=== PATIENT | male | born 1965 | race Caucasian/White ===

== ENCOUNTER 2024-11-30 12:49 | Outpatient (AMB) | payer OTHER, SELFPAY ==
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
[2024-11-30 12:54] VITALS: BP 136/75; PULSE 72; RESP 16; O2SAT 96; BMI 27.5
--- OUTSIDE RECORDS SUMMARY | 2024-11-30 15:00 | XMS_ITS | Continuity of Care Document ---
Author Organization [facility] Address [address] [place] [id number]- Care Team Providers Care Fixed Income Portfolio Manager Name Role Phone Not on Staff, PCP Primary Care Physician Unavail able Encounter [facility] Date(s): 10/26/24 - 11/25/24 [facility] [address] [place] [id number] Encounter Type: Triage Allergies, Adverse Reactions, Alerts No Known Allergies Immunizations Given and Recorded Vaccine Date Status Refusal Reason hepatitis B adult vaccine 10/04/23 Given hepatitis B adult vaccine 1 09/05/23 Given influenza virus vaccine, inactivated 09/12/23 Tavon rded influenza virus vaccine, inactivated 08/14/22 Give n influenza virus vaccine, inactivated 09/16/21 Tavon rded influenza virus vaccine, inactivated 09/06/20 Tavon rded influenza virus vaccine, inactivated 10/15/18 Tavon rded SARS-CoV-2(COVID-19)mRNA-LNP vac([id number]) 09/12/23 Recorded Hepatitis A Adult Vaccine 2 09/05/23 Given [id number] bivalent booster vax 10/26/22 Recorded SARS-CoV-2 mRNA (ixwllcq-laif-ifmrl) vax 03/22/22 Recorded SARS-CoV-2 (COVID-19) mRNA BNT-162b2 vac 09/16/21 Recorded SARS-CoV-2 (COVID-19) mRNA BNT-162b2 vac 02/14/21 Recorded SARS-CoV-2 (COVID-19) mRNA BNT-162b2 vac 01/24/21 Recorded pneumococcal 13-valent vaccine 10/15/18 Recorded 1Result Comment: Heplisav-B #1 2Result Comment: #1 Medications Biktarvy oral tablet 1 tablet, By Mouth, Daily, # 30 tablet, 5 Refills, Maintenance, 10/26/24 12:40:00 PM EST, [facility] #[id number], 1 tablet By Mouth Daily,x30 days, 183, cm, 06/30/24 10:34:00 EDT, Height Start Date: 10/26/24 Stop Date: 04/24/25 Status: Ordered Quantity: 30.0 Unit: tablet Repeat number: 6 pantoprazole 40 mg oral delayed release tablet 1 tablet = 40 mg, By Mouth, Daily, # 30 tablet, 0 Refills, Maintenance, 08/14/22 9:23:00 AM EDT, EC Tablet Start Date: 08/14/22 Status: Ordered Quantity: 30.0 Unit: tablet Repeat number: 1 rosuvastatin 10 mg oral tablet 1 tablet, By Mouth, Daily, # 90 tablet, 1 Refills, Maintenance, 09/02/24 8:44:00 AM EDT, [facility] #[id number], 183, cm, 06/30/24 10:34:00 EDT, Height Start Date: 09/02/24 Stop Date: 03/01/25 Status: Ordered Quantity: 90.0 Unit: tablet Repeat number: 2 Social History Social History Type Response Smoking Status Never (less than 100 in lifetime) entered on: 08/14/22 Sex Sex Representation Male (finding) Patient Care team information Care Team Personnel Name: Not on Staff, PCP Position: S Physician (General Medicine) Member Role: PCP Care Team Related Persons Name: IRVIN KUMARI Name: MARIZOL MESSER Insurance Providers Guarantor name: CARLY Health Plan Information #: 1 Payer: [facility] Member Number: NA Policy Number: NA Group Number: NA
--- OUTSIDE RECORDS SUMMARY | 2024-11-30 15:01 | XMS_ITS | Data Portability ---
Author Organization [facility], , [facility] Address [address] [place] [address] Assessment No assessment recorded. Plan of Treatment Reminders Order Date Submit Date Provider Last Modified By Organization Details Last Modified Time Details Appointments None record ed. Lab None record ed. Referral None record ed. Procedures None record ed. Surgeries None record ed. Imaging None record ed. Medication Orders None record ed. Patient TargetsNo targets recorded. Patient InstructionsNo instructions recorded. Reason for Referral None Reported. Results Created Date Observation Date Name Description Value Unit Range Abnormal Flag Note LastModifiedBy Organization Detail LastModifiedTime Result Notes None recorded. Procedures Surgical History Date Name Laterality Status Provider Name and Address Organization Details Recorded Time 6 Tala - Colonoscopy completed Mani Edgar MD [address] [place] [address], [id number] [facility] [place] 14:25:31 Imaging Results None recorded. Procedure Notes None recorded. Medical Equipment None Reported. Medications Name Sig Start Date Stop Date Status Note LastModified by Organization Details LastModified Time terazosin 5 mg capsule TAKE ONE CAPSULE BY MOUTH AT BEDTIME active Not Available Not Available No t Available oxybutynin chloride ER 10 mg tablet,extended release 24 hr TAKE 2 TABLET(S ) BY MOUTH DAILY active Not Available Not Available No t Available prochlorperazin e maleate 10 mg tablet active Not Available Not Available Not Available pantoprazole 40 mg tablet,delayed release active Not Available Not Available Not Available Atripla 600 mg-200 mg-300 mg tablet TAKE 1 TABLET BY MOUTH AT BEDTIME active Not Available Not Available No t Available Vitals None Recorded Social History None recorded. Functional Status None recorded. Mental Status None recorded. Family History Nothing Reported. Medical History No medical history recorded. Past Encounters Encounter ID Performer Location Encounter Start Date Encounter Closed Date Diagnosis/Indication Diagnosis SNOMED-CT Code Diagnosis ICD10 Code Diagnosis Note [id number] Olive Sam [facility] [place] [address] [place] [address] 11/28/2015 13:15:21 11/28/2015 14:41:45 Health Concerns Section Related Observation LastModified by Organization Doris daniel LastModified Time None Recorded Concern Status LastModified by Organization Details LastModified Time None Recorded Advance Directives Directive None Recorded Payers Encounter Date Sequence Insurance Name Policy Number Policy Gupta Covered Member ID Gupta Member ID Guarantor Name 11/28/2015 1 [facility] ([id number]) [id number] Sachin Mena [id number] Sachin Mena
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
== END 2024-11-30 13:37 | disposition home or self-care (01) ==
PROVIDERS: PCP Family Medicine; Referring Provider Physical Medicine & Rehabilitation; Visit Provider Internal Medicine
DX: M47.812 Spondylosis without myelopathy or radiculopathy, cervical region (principal); M79.18 Myalgia, other site
CPT/HCPCS: 20552; 99204

== ENCOUNTER → 2024-11-30 12:49 | Outpatient (BNVA) | payer OTHER, SELFPAY | PROVIDERS: PCP Family Medicine; Referring Provider Physical Medicine & Rehabilitation; Visit Provider Internal Medicine | DX: M79.18 Myalgia, other site (principal); M47.812 Spondylosis without myelopathy or radiculopathy, cervical region | CPT/HCPCS: 20552; J2795 ==

== ENCOUNTER 2024-12-23 10:09 | Outpatient (AMB) | payer OTHER, SELFPAY ==
--- NOTE | 2024-12-23 10:29 | MHC.OFFVIS ---
Vital Signs 12/23/24 10:30 Height 6 ft Weight 201 lb BMI 27.3 BP 142/82 H Blood Pressure Location Lt brachial Position Sitting Respiration 16 Pulse 71 Pulse Source Pulse Oximeter Pulse Oximetry (%) 97 Oxygen Delivery Method Room Air Intake Visit Reasons: 3 Week Follow Up Catalog Library Assistant Required: No Allergies amoxicillin Adverse Reaction (Severe, Verified 12/23/24 10:32) Hives Medication List - Last Reconciled 12/23/24 by Radha Cates LPN qozmkhuwd-huiiqjyt-xqdgaej ala 50-200-25 mg (Biktarvy) 1 tab PO DAILY rosuvastatin 10 mg PO BEDTIME HPI HPI 3 Week Follow Up: Details: History of Present Illness The patient is a 59-year-old male presenting with refractory cervicogenic headaches and cervical facet joint syndrome. The patient reports a history of persistent headaches and neck pain that have not responded to alternative treatments including physical therapy, chiropractic manipulation, extensive lumbar exercise programs, and cervical trigger point injections. Following the trigger point injections, the patient experienced exacerbated pain, describing a sensation of a lump in the neck and persistent headaches unchanged in frequency and severity. The primary problem started several years ago and has persisted despite intervention. Exacerbating factors include nighttime and certain neck movements, while there is no significant alleviation with current measures. Prior interventions have provided temporary or minimal relief, and the patient's condition remains unchanged, impacting daily activities and quality of life. Pain Description - Location: Neck and cervicogenic region, with associated headaches. - Timing: Chronic, persistent with episodic exacerbation. - Character: Persistent aching pain, feeling of a lump, headache development. - Exacerbating factors: Nighttime, after certain treatments. - Interfering activities: Daily living, sleep due to nighttime exacerbation. Physical Exam Appears afebrile. Alert and oriented. Mood and affect appropriate. Follows and participates in conversation appropriately. Respiratory effort is unlabored. Able to transition from sit to stand unassisted. Ambulates with bilaterally normal heel strike and toe off. Able to stand and walk on toes and heels. Cervical extension severely limited and painful. Pain Management - Affect: Pain is frustrating and impacting daily activities. - Analgesia: Trigger point injections were not effective. - Adverse Effects: No specific adverse effects noted beyond pain exacerbation post-injection. - Activities of Daily Living: Limited due to headaches and neck pain. - Aberrant Drug Related Behaviors: None reported. PFSH Medical History (Updated 12/30/24 @ 11:50 by Bj Abernathy MD) Hyperlipidemia Insomnia BPH (benign prostatic hyperplasia) GERD (gastroesophageal reflux disease) Inguinal hernia HIV (human immunodeficiency virus infection) Physical Exam Vital Signs: Last Vital Signs Pulse 71 12/23/24 10:30 Resp 16 12/23/24 10:30 BP 142/82 H 12/23/24 10:30 Pulse Ox 97 12/23/24 10:30 Oxygen Delivery Method Room Air 12/23/24 10:30 BMI result Body Mass Index 27.3 Assessment & Plan Assessment & Plan (1) Myofascial pain syndrome, cervical: Code(s): M79.18 - Myalgia, other site Category: Medical (2) Cervical facet joint syndrome: Code(s): M47.812 - Spondylosis without myelopathy or radiculopathy, cervical region Category: Medical (3) Chronic neck pain: Code(s): M54.2 - Cervicalgia; G89.29 - Other chronic pain Category: Medical Plan Plan - Proceed with temporary nerve stimulation targeting the C3 medial branch and third occipital nerve. - Submit insurance authorization for nerve stimulator procedure. - Consider diagnostic facet injections if required for insurance approval prior to nerve stimulator use. Patient was informed and verbally consented to the use of an ambient scribe for clinic note documentation during this visit. Discussion Notes During this visit, I discussed the patient's ongoing cervicogenic headaches and cervical facet joint syndrome. Although previous treatments such as trigger point injections did not yield relief, we explored the option of temporary nerve stimulation, targeting the third occipital nerve and C3-4 medial branch nerves. The patient was informed of the procedure details, including the 70% success rate and the non-invasive nature of the implant, as well as minor procedural risks such as a theoretical 1% lead breakage risk. The patient consented to proceed with this plan upon insurance approval. Alternate treatments, potential diagnostic injections, and their limited longer-term benefits were also reviewed. Patient Instructions - Await communication regarding insurance approval for the nerve stimulator procedure. - Avoid swimming or full body immersion in water for two months should the stimulator be placed. - Continue regular activities but be mindful of neck movements that trigger pain. - Report any significant changes in pain or new symptoms. Coding Level of Care Code Est Pt Level 3 (08158) Diagnoses Myofascial pain syndrome, cervical M79.18 Cervical facet joint syndrome M47.812 Chronic neck pain M54.2; G89.29
[2024-12-23 10:30] VITALS: BP 142/82; PULSE 71; RESP 16; O2SAT 97; BMI 27.3
--- OUTSIDE RECORDS SUMMARY | 2024-12-23 11:05 | XMS_ITS | Data Portability ---
Author Organization [facility] [employer], [employer] 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 Lab None recorded. Referral None recorded. Procedures None recorded. Surgeries None recorded. Imaging None recorded. Medication Orders propranolol ER 60 mg capsule,24 hr,extended release 2023 024 [id number], [address] [place], [place], [phone], 10:39:49 Patient TargetsNo targets recorded. Patient Instructions Encounter Date Encounter Id Patient Instructions Last Modified By Organization Details Last Modified Time 01/07/2024 [id number] Discussion acros s issues of diagnoses and management and same day associated chart review and management greater than 50% greater than 60 minutes [email or web address] Not available 01/07/2024 10:19:04 Reason for Referral None Reported. Results Created Date Observation Date Name Description Value Unit Range Abnormal Flag Note LastModifiedBy Organization Detail LastModifiedTime 01/07/2011/23/2023 MRI, brain , w/o contr ast No observ ation record ed. [email or web address] [address], [address], 01/07/2024 12:14:56 Result Notes None recorded. Procedures Surgical History None recorded. Imaging Results Imaging Date Name Status LastModified by Organiz ation Details LastModified Time 11/23/2023 MRI, brain, w/o contrast completed [email or web address] [address], [address], 01/07/2024 12:14:56 Procedure Notes None recorded. Medical [...] Updated DateTime 01/07/2024 182.88 cm 26.3 kg/m2 00515.92 g 12 /min [facility] 01/07/2024 09:30:44 Social History None [...] SNOMED-CT Code Diagnosis ICD10 Code Diagnosis Note [id number] Jorge Stockton MD [facility] [address] [place] [address] [place] [address] 01/07/2024 08:56:52 01/07/2024 10:55:41 Migraine without aura [id number] G43.009 Health Concerns Section Related Observation LastModified by Organization Detai ls LastModified Time None Recorded Concern Status LastModified by Organization Details LastModified Time None Recorded Advance Directives Directive None Recorded Payers Encounter Date Sequence Insurance Name Policy Number Policy Gupta Covered Member ID Gupta Member ID Guarantor Name 01/07/2024 1 [facility] [id number] Sachin Mena [id number] Sachin Mena Notes Date Note Type Note [...] the skull base and to his right synagogue with significant light and sound sensitivity and [...] before it becomes excruciating, and takes for itdq-tat-aqhmhhs Advil or the equivalent of naproxen, the headache is somewhat dulled. Nevertheless, the headache is debilitating throughout its course. He has never tried a prescription medication for headache.If he were not having headaches, he feels quite healthy. He has had no confusion or fever. He has no weakness. Jorge Stockton MD [address] [place] [address] [place], [address], Formerly [facility] 01/07/2024 10:42:34
--- OUTSIDE RECORDS SUMMARY | 2024-12-23 11:06 | XMS_ITS | Continuity of Care Document ---
Author Organization [facility] Address [address] [place] [address] Care Team Providers Care School Resource Officer Name Role Phone Not on Staff, PCP Primary Care Physician Unavail able Encounter [facility] Date(s): 10/26/24 - 11/25/24 [facility] [address] [place] [address] Encounter Type: Triage Allergies, Adverse Reactions, Alerts [...] virus vaccine, inactivated 10/15/18 Tavon rded SARS-CoV-2(COVID-19)mRNA-LNP vac(sss478) 09/12/23 Recorded Hepatitis A Adult Vaccine 2 09/05/23 Given [id number] bivalent booster vax 10/26/22 Recorded SARS-CoV-2 mRNA (uyowmiw-jncn-goose) vax 03/22/22 Recorded SARS-CoV-2 (COVID-19) mRNA BNT-162b2 vac 09/16/21 Recorded SARS-CoV-2 (COVID-19) mRNA BNT-162b2 vac 02/14/21 Recorded SARS-CoV-2 (COVID-19) mRNA BNT-162b2 vac 01/24/21 Recorded pneumococcal 13-valent vaccine 10/15/18 Recorded 1Result Comment: Heplisav-B #1 2Result Comment: #1 Medications Biktarvy oral tablet 1 tablet, By Mouth, Daily, # 30 tablet, 5 Refills, Maintenance, 10/26/24 12:40:00 PM EST, [facility] #[id number], 1 tablet By Mouth Daily,x30 days, 183, [...] 1 Refills, Maintenance, 09/02/24 8:44:00 AM EDT, [facility] #[id number], 183, cm, 06/30/24 10:34:00 EDT, Height Start [...] CARLY Health Plan Information #: 1 Payer: [facility] Member Number: NA Policy Number: NA Group Number: [id number]
== END 2024-12-23 11:12 | disposition home or self-care (01) ==
PROVIDERS: PCP Family Medicine; Visit Provider Internal Medicine
DX: M79.18 Myalgia, other site (principal); M47.812 Spondylosis without myelopathy or radiculopathy, cervical region; M54.2 Cervicalgia; G89.29 Other chronic pain
CPT/HCPCS: 99213

== ENCOUNTER → 2024-12-23 10:09 | Outpatient (BNVA) | payer OTHER, SELFPAY | PROVIDERS: PCP Family Medicine; Visit Provider Internal Medicine ==

== ENCOUNTER 2025-02-18 08:01 | Outpatient (REF) | payer OTHER, SELFPAY ==
--- NOTE | ~2025-02-18 | FL_ITS ---
EXAMINATION: FL GUIDANCE ONLY HISTORY: M47.812 - Spondylosis without myelopathy or radiculopathy, cervical region COMPARISON: None available. TECHNIQUE: Fluoroscopy time: 0.2 minutes. Cumulative Dose: 1.56 mGy. DAP: 0.08908 mGym2 Images: 2. FINDINGS: Images demonstrate multiple needles and contrast material in the right neck. FL/FL guidance in treatment room IMPRESSION: Fluoroscopy during procedure. Please see procedure report for additional information. Electronically signed by: Chas Siegel MD 02/19/2025 08:12 AM EDT
--- OUTSIDE RECORDS SUMMARY | 2025-02-18 08:05 | XMS_ITS | Data Portability ---
Author Organization [facility], , [facility] Address [address] [place] [address] Assessment No assessment recorded. Plan of Treatment [...] Tala - Colonoscopy completed Mani Edgar MD [address] [place] [address], [phone], [facility] 11/28/2015 14:25:31 Imaging Results None recorded. Procedure [...] SNOMED-CT Code Diagnosis ICD10 Code Diagnosis Note [id number] Olive Sam [facility] [address] [place] [address] 11/28/2015 13:15:21 11/28/2015 14:41:45 Health Concerns Section Related Observation LastModified by Organization Doris daniel LastModified Time None Recorded Concern Status LastModified by Organization Details LastModified Time None Recorded Advance Directives Directive None Recorded Payers Encounter Date Sequence Insurance Name Policy Number Policy Gupta Covered Member ID Gupta Member ID Guarantor Name 11/28/[address] [facility] (O) [id number] Sachin Mena [id number] Sachin Mena
--- OUTSIDE RECORDS SUMMARY | 2025-02-18 08:05 | XMS_ITS | Data Portability ---
Author Organization [facility] [employer], [employer] Address [address] [place] [address] [place] [address] Care Team Providers Care Assembly Machine Set Up Mechanic Name Role Phone [place] BAUER Primary Care Provider [phone] [place] BAUER Referring Provider Assessment Encounter Date [...] to find brain MRI he had at [facility] for documentation Follow-up in 6 weeks nicholas Not available 01/07/2024 10:42:22 Plan of Treatment Reminders Order Date Submit Date Provider Last Modified By Organization Details Last Modified Time Details Appointments None recorded. Lab None recorded. Referral None recorded. Procedures None recorded. Surgeries None recorded. Imaging None recorded. Medication Orders propranolol ER 60 mg capsule,24 hr,extended release 2023 024 [facility] #[id number], [address] [place], [place], [phone], 10:39:49 Patient TargetsNo targets recorded. Patient Instructions Encounter Date Encounter Id Patient Instructions Last Modified By Organization Details Last Modified Time 01/07/2024 [id number] Discussion acros s issues of diagnoses and management and same day associated chart review and management greater than 50% greater than 60 minutes [email or web address] Not available 01/07/2024 10:19:04 Reason for Referral None Reported. Results Created Date Observation Date Name Description Value Unit Range Abnormal Flag Note LastModifiedBy Organization Detail LastModifiedTime 01/07/2011/23/2023 MRI, brain , w/o contr ast No observ ation record ed. [email or web address] [address], [address], 01/07/2024 12:14:56 Result Notes None recorded. Procedures Surgical History None recorded. Imaging Results Imaging Date Name Status LastModified by Organiz ation Details LastModified Time 11/23/2023 MRI, brain, w/o contrast completed [email or web address] [address], [address], 01/07/2024 12:14:56 Procedure Notes None recorded. Medical [...] Updated DateTime 01/07/2024 182.88 cm 26.3 kg/m2 03026.92 g 12 /min [facility] 01/07/2024 09:30:44 Social History None recorded. Functional [...] SNOMED-CT Code Diagnosis ICD10 Code Diagnosis Note 53389 Jorge Stockton MD [facility] [address] [place] [address] [place] [address] 01/07/2024 08:56:52 01/07/2024 10:55:41 Migraine without aura [id number] G43.009 Health Concerns Section Related Observation LastModified by Organization Detai ls LastModified Time None Recorded Concern Status LastModified by Organization Details LastModified Time None Recorded Advance Directives Directive None Recorded Payers Encounter Date Sequence Insurance Name Policy Number Policy Gupta Covered Member ID Gupta Member ID Guarantor Name 01/07/2024 1 [facility] [id number] Sachin Mena [id number] Sachin Mena Notes Date Note Type Note [...] the skull base and to his right uatsdin with significant light and sound sensitivity and [...] before it becomes excruciating, and takes for lvzi-flj-sjmgana Advil or the equivalent of naproxen, the headache is somewhat dulled. Nevertheless, the headache is debilitating throughout its course. He has never tried a prescription medication for headache.If he were not having headaches, he feels quite healthy. He has had no confusion or fever. He has no weakness. Jorge Stockton MD [address] [place] [address] [place], [address], formerly [facility] 01/07/2024 10:42:34
== END 2025-02-18 08:02 | disposition home or self-care (01) ==
LOC: CF 08:01
PROVIDERS: Visit Provider Internal Medicine
DX: M47.812 Spondylosis without myelopathy or radiculopathy, cervical region (principal)
CPT/HCPCS: 64490; 64491; J2003; J2795; Q9967

== ENCOUNTER 2025-02-18 11:41 | Outpatient (AMB) | payer OTHER, SELFPAY ==
[2025-02-18 11:49] VITALS: BP 109/77; PULSE 66; RESP 16; O2SAT 98
--- NOTE | 2025-02-18 11:49 | MHC.OFFVIS ---
Vital Signs 02/18/25 11:49 02/18/25 12:38 BP 109/77 126/71 Blood Pressure Location Lt brachial Lt brachial Position Sitting Sitting Respiration 16 16 Pulse 66 60 Pulse Source Pulse Oximeter Pulse Oximeter Pulse Oximetry (%) 98 99 Oxygen Delivery Method Room Air Room Air Intake Visit Reasons: Right Dx C3-C4-C5 MBB Call Center Receptionist Required: No Allergies amoxicillin Adverse Reaction (Severe, Verified 02/18/25 11:50) Hives HPI HPI Right Dx C3-C4-C5 MBB: Details: Patient presents for scheduled procedure. Denies any recent cough, cold, infection, fever or other significant changes in medical history since last office visit. [facility] Medical History (Updated 12/30/24 @ 11:50 by Bj Abernathy MD) Hyperlipidemia Insomnia BPH (benign prostatic hyperplasia) GERD (gastroesophageal reflux disease) Inguinal hernia HIV (human immunodeficiency virus infection) Physical Exam Vital Signs: Last Vital Signs Pulse 60 02/18/25 12:38 Resp 16 02/18/25 12:38 BP 126/71 02/18/25 12:38 Pulse Ox 99 02/18/25 12:38 Oxygen Delivery Method Room Air 02/18/25 12:38 Office Procedures Cervical/Thoracic Facet Inj Details: Diagnostic Cervical Medial Branch Block, right C3, C4, C5 medial branches After obtaining written consent, pre-procedure blood pressure and pulse were recorded and are in the nursing record for review. The patient was placed in a lateral position. The respective cervical area was prepped with chloraprep and draped in sterile fashion. The skin over the target medial branch nerves was anesthetized with 0.5% lidocaine. A 25 gauge 1.5 inch needle was inserted into the target medial branch nerve under fluoroscopic guidance. No paresthesias were elicited with needle placement and aspiration was negative for blood and CSF. Next, 0.2cc of omnipaque 180 was injected to verify positioning. Next 0.5 ml 0.5% bupivicaine was injected (0.5 cc total per level). The identical procedure was performed at the remaining levels. The skin was cleansed and a sterile bandage was applied. Following the procedure the patient's vital signs were stable. The patient tolerated the procedure well and no complications were encountered. Following the procedure the patient's vital signs were stable. The patient was discharged home in good condition with post-procedural instructions. Time Out: Immediately prior to the procedure, the following was verbally confirmed that there is a signed consent form and that the correct patient, planned procedure, site and side are consistent with documentation and that necessary equipment and/or blood products are available prior to the start of the case. Complications: none EBL: <5 cc 27183 - with Fluoroscopy 38341 - second level, with Fluoroscopy Procedure code (CPT) selection complete Assessment & Plan Assessment & Plan (1) Cervical facet joint syndrome: Code(s): M47.812 - Spondylosis without myelopathy or radiculopathy, cervical region Category: Medical Plan Patient is status post right C3, C4, C5 diagnostic medial branch blocks. Patient tolerated procedure well and was discharged home in stable condition with discharge instructions. All questions were answered. We will follow-up via telephone or in clinic to assess response to therapy. A follow-up appointment was made during today's visit. Orders: Orders FL guidance in treatment room Today M47.812 - Spondylosis without myelopathy or radiculopathy, cervical region Coding Level of Care Code Procedure Only Diagnoses Cervical facet joint syndrome M47.812 CPT Codes Facet Injection Cervical/Thoracic - CPT: 36544 - with Fluoroscopy ([id number]) Facet Injection Cervical/Thoracic - CPT: 43223 - second level, with Fluoroscopy ([id number])
[2025-02-18 12:38] VITALS: BP 126/71; PULSE 60; RESP 16; O2SAT 99
== END 2025-02-18 12:41 | disposition home or self-care (01) ==
LOC: HO.PMCPRC 11:41
PROVIDERS: PCP Family Medicine; Visit Provider Internal Medicine
DX: M47.812 Spondylosis without myelopathy or radiculopathy, cervical region (principal)
CPT/HCPCS: 64490; 64491

== ENCOUNTER 2025-02-24 12:12 | Outpatient (AMB) | payer OTHER, SELFPAY ==
--- NOTE | 2025-02-24 12:12 | A.OFFVIS_ITS ---
Intake Visit Reasons: s/p right Dx C3-C4-C5 MBB Allergies amoxicillin Adverse Reaction (Severe, Verified 02/18/25 11:50) Hives HPI HPI s/p right Dx C3-C4-C5 MBB: Details: History of Present Illness The patient is a 59-year-old male presenting with cervical facet mediated pain. He reported significant alleviation of symptoms following a cervical medial branch block, experiencing substantial relief for two nights. The issue origin ates from an accident after which he developed persistent neck pain and headaches. Previously attempted treatments included physical therapy, although it proved ineffective at the time. Exercise has variable effects on his pain, but no specific aggravating factors have been identified. The initial block resulted in more than 90% pain relief, confirming cervical facet mediated pain as a likely cause of his symptoms and pointing towards further interventions such as nerve ablation or stimulator placement as potential treatment options. Pain Description - Onset and Timing: Pain exacerbates at night, with significant relief noted post-cervical medial branch block. - Quality and Character: The pain is described as severe and affecting sleep quality. - Primary Location: Cervical region of the neck. - Radiation: No radiation of pain mentioned. - Exacerbating Factors: Specific exercises may exacerbate pain, though unconfirmed which ones. - Relieving Factors: Temporary relief experienced post cervical medial branch block. - Interference with Activities: Pain significantly disrupts sleep and affects daily activities. Physical Exam - Appears afebrile. - Alert and oriented. - Mood and affect appropriate. - Follows and participates in conversation appropriately. - Respiratory effort is unlabored. - Able to transition from sit to stand unassisted. - Ambulates with bilaterally normal heel strike and toe off. - Able to stand and walk on toes and heels. Results - Diagnostic Tests: Positive diagnostic cervical medial branch block with more than 90% pain relief, suggesting cervical facet syndrome. Pain Management - Affect: Pain has a significant impact on sleep quality and rest. - Analgesia: Temporary relief noted from cervical medial branch block. - Adverse Effects: No adverse effects reported from pain management interventions. - Activities of Daily Living: Pain disrupts sleep, affecting overall daily functioning. - Aberrant Drug-Related Behaviors: No aberrant behaviors noted. [facility] Medical History (Updated 12/30/24 @ 11:50 by Bj Abernathy MD) Hyperlipidemia Insomnia BPH (benign prostatic hyperplasia) GERD (gastroesophageal reflux disease) Inguinal hernia HIV (human immunodeficiency virus infection) Telehealth Telehealth Telehealth Platform: [employer] Location of provider rendering services: practice address Location of patient: address on file Patient Identification confirmed using: Name, : Yes Telehealth method: video Patient verbally consented to treatment: Yes Patient verbally consented to billing insurance company: Yes Patient informed of any privacy concerns related to visit: Yes Assessment & Plan Assessment & Plan (1) Cervical facet joint syndrome: Code(s): M47.812 - Spondylosis without myelopathy or radiculopathy, cervical region Category: Medical Plan Plan The patient will undergo a second round of diagnostic cervical medial branch blocks, with the expectation of proceeding to radiofrequency ablation based on initial positive response. This intervention aims to provide extended pain relief by cauterizing affected nerves. Alternatives like PNS are acknowledged for future consideration depending on insurance coverage. Patients will also explore resuming physical therapy for cervical facet pain management, with the goal of identifying effective exercises to minimize intervention needs. Patient was informed and verbally consented to the use of an ambient scribe for clinic note documentation during this visit. Discussion Notes I discussed with the patient the diagnosis of cervical facet mediated pain, confirmed by a positive initial diagnostic medial branch block which provided more than 90% relief. I outlined the plan to request authorization for a second diagnostic block, which, if successful, will lead to radiofrequency ablation. I explained the procedure involves placing a needle near the affected nerves and using heat to cauterize them, resulting in pain relief for 6 to 10 months. The risks, including a potential 10-15% chance of altered neck sensations, were discussed and understood by the patient. We reviewed that if resuming physical therapy can effectively manage the pain, it could reduce the frequency of interventions. The patient was informed to expect contact from our office regarding scheduling these procedures. Patient Instructions - Expect a call from our office to schedule the second diagnostic cervical medial branch block. - Consider resuming physical therapy to identify exercises that may aid in managing cervical facet mediated pain. - Monitor and note any specific exercises that exacerbate or alleviate pain symptoms. - Be aware of the potential for a 10-15% chance of experiencing unusual neck sensations post-procedure. - If symptoms worsen or new symptoms arise, contact our office. Coding Level of Care Code Est Pt Level 3 (91348) Diagnoses Cervical facet joint syndrome M47.812
--- OUTSIDE RECORDS SUMMARY | 2025-02-24 14:13 | XMS_ITS | Data Portability ---
Author Organization [facility] [employer], [employer] Address [address] [place] [address] [place] [address] Care Team Providers Care Industrial Nurse Name Role Phone [place] BAUER Primary Care Provider [phone] [place] BAUER Referring Provider Assessment Encounter Date [...] to find brain MRI he had at [facility] for documentation Follow-up in 6 weeks nicholas Not available 01/07/2024 10:42:22 Plan of Treatment Reminders Order Date Submit Date Provider Last Modified By Organization Details Last Modified Time Details Appointments None recorded. Lab None recorded. Referral None recorded. Procedures None recorded. Surgeries None recorded. Imaging None recorded. Medication Orders propranolol ER 60 mg capsule,24 hr,extended release 2023 024 [id number], [address] [place], [place], [phone], 10:39:49 Patient TargetsNo targets recorded. Patient Instructions Encounter Date Encounter Id Patient Instructions Last Modified By Organization Details Last Modified Time 01/07/2024 [id number] Discussion acros s issues of diagnoses and management and same day associated chart review and management greater than 50% greater than 60 minutes [email or web address] Not available 01/07/2024 10:19:04 Reason for Referral None Reported. Results Created Date Observation Date Name Description Value Unit Range Abnormal Flag Note LastModifiedBy Organization Detail LastModifiedTime 01/07/2011/23/2023 MRI, brain , w/o contr ast No observ ation record ed. [email or web address] [address], [address], 01/07/2024 12:14:56 Result Notes None recorded. Procedures Surgical History None recorded. Imaging Results Imaging Date Name Status LastModified by Organiz ation Details LastModified Time 11/23/2023 MRI, brain, w/o contrast completed [email or web address] [address], [address], 01/07/2024 12:14:56 Procedure Notes None recorded. Medical [...] Updated DateTime 01/07/2024 182.88 cm 26.3 kg/m2 57959.92 g 12 /min [facility] 01/07/2024 09:30:44 Social History None recorded. Functional [...] SNOMED-CT Code Diagnosis ICD10 Code Diagnosis Note [id number] Jorge Stockton MD [facility] [address] [place] [address] [place] [address] 01/07/2024 08:56:52 01/07/2024 10:55:41 Migraine without aura [id number] G43.009 Health Concerns Section Related Observation LastModified by Organization Detai ls LastModified Time None Recorded Concern Status LastModified by Organization Details LastModified Time None Recorded [place] Directives Directive None Recorded Payers Encounter Date Sequence Insurance Name Policy Number Policy Gupta Covered Member ID Gupta Member ID Guarantor Name 01/07/2024 1 [facility] [id number] Sachin Mena [id number] Sachin Mena Notes Date Note Type Note [...] the skull base and to his right taoism with significant light and sound sensitivity and [...] before it becomes excruciating, and takes for vbtg-wfw-mrxcabx Advil or the equivalent of naproxen, the headache is somewhat dulled. Nevertheless, the headache is debilitating throughout its course. He has never tried a prescription medication for headache.If he were not having headaches, he feels quite healthy. He has had no confusion or fever. He has no weakness. Jorge Stockton MD [address] [place] [address] [place], [address], [facility]ly [facility] 01/07/2024 10:42:34
== END 2025-02-24 12:13 | disposition home or self-care (01) ==
LOC: HO.PMC 12:12
PROVIDERS: PCP Family Medicine; Visit Provider Internal Medicine
DX: M47.812 Spondylosis without myelopathy or radiculopathy, cervical region (principal)
CPT/HCPCS: 99213

== ENCOUNTER 2025-03-18 07:08 | Outpatient (REF) | payer OTHER, SELFPAY ==
--- NOTE | ~2025-03-18 | FL_ITS ---
EXAMINATION: FL GUIDANCE ONLY HISTORY: M47.812 - Spondylosis without myelopathy or radiculopathy, cervical region COMPARISON: None available. TECHNIQUE: Fluoroscopy time: 0.1 minutes. Cumulative Dose: 0.944 mGy. DAP: 0.19193 mGym2 Images: 2. FINDINGS: Images demonstrate multiple needles and contrast material in the right neck. FL/FL guidance in treatment room IMPRESSION: Fluoroscopy during procedure. Please see procedure report for additional information. Electronically signed by: Chas Siegel MD 03/18/2025 02:53 PM EDT
--- OUTSIDE RECORDS SUMMARY | 2025-03-18 07:12 | XMS_ITS | Data Portability ---
Author Organization [facility], , [facility] Address [address] [place] [address] Assessment No assessment recorded. Plan of Treatment [...] Tala - Colonoscopy completed Mani Edgar MD [address] [place] [address], [phone], [facility] 11/28/2015 14:25:31 Imaging Results None [...] SNOMED-CT Code Diagnosis ICD10 Code Diagnosis Note [id number] Mani Edgar MD [facility], [address] [address] 11/28/2015 13:15:21 11/28/2015 14:41:45 Health Concerns Section Related Observation LastModified by Organization Detai ls LastModified Time None Recorded Concern Status LastModified by Organization Details LastModified Time None Recorded [place] Directives Directive None Recorded Payers Encounter Date Sequence Insurance Name Policy Number Policy Gupta Covered Member ID Gupta Member ID Guarantor Name 11/28/2015 1 [facility] (HMO) [id number] Sachin Mena [id number] Sachin Mena
--- OUTSIDE RECORDS SUMMARY | 2025-03-18 07:12 | XMS_ITS | Data Portability ---
Author Organization [facility] [employer], [employer] Address [address] [place] [address] [place] [address] Care Team Providers Care Hay Stacker Name Role Phone [place] BAUER Primary Care [...] to find brain MRI he had at [facility] for documentation Follow-up in 6 weeks [email or web address] Not available 01/07/2024 10:42:22 Plan of Treatment Reminders Order Date Submit Date Provider Last Modified By Organization Details Last Modified Time Details Appointments None recorded. Lab None recorded. Referral None recorded. Procedures None recorded. Surgeries None recorded. Imaging None recorded. Medication Orders propranolol ER 60 mg capsule,24 hr,extended release 2023 024 [facility][id number], [address] [place], [place], [phone], 10:39:49 Patient TargetsNo targets recorded. Patient Instructions Encounter Date Encounter Id Patient Instructions Last Modified By Organization Details Last Modified Time 01/07/2024 [id number] Discussion acros s issues of diagnoses and [...] No observ ation record ed. [email or web address] [address], [address], 01/07/2024 12:14:56 Result Notes None recorded. Procedures Surgical History None recorded. Imaging Results Imaging Date Name Status LastModified by Organiz ation Details LastModified Time 11/23/2023 MRI, brain, w/o contrast completed [email or web address] [address], [address], 01/07/2024 12:14:56 Procedure Notes None recorded. Medical [...] Updated DateTime 01/07/2024 182.88 cm 26.3 kg/m2 74462.92 g 12 /min [facility] 01/07/2024 09:30:44 Social History None recorded. Functional [...] SNOMED-CT Code Diagnosis ICD10 Code Diagnosis Note [id number] Jorge Stockton MD [facility] [address] [place] [address] [place] [address] 01/07/2024 08:56:52 01/07/2024 10:55:41 Migraine without aura [id number] G43.009 Health Concerns Section Related Observation LastModified by Organization Detai ls LastModified Time None Recorded Concern Status LastModified by Organization Details LastModified Time None Recorded [place] Directives Directive None Recorded Payers Encounter Date Sequence Insurance Name Policy Number Policy Gupta Covered Member ID Gupta Member ID Guarantor Name 01/07/2024 1 [facility] [id number] Sachin Mena [id number] Sachin Mena Notes Date Note Type Note [...] the skull base and to his right confucianism with significant light and sound sensitivity and [...] before it becomes excruciating, and takes for fdiw-yzt-hoxmdbn Advil or the equivalent of naproxen, the headache is somewhat dulled. Nevertheless, the headache is debilitating throughout its course. He has never tried a prescription medication for headache.If he were not having headaches, he feels quite healthy. He has had no confusion or fever. He has no weakness. Jorge Stockton MD [address] [place] [address] [place], [address], [facility] 01/07/2024 10:42:34
== END 2025-03-18 07:09 | disposition home or self-care (01) ==
LOC: CF 07:08
PROVIDERS: Visit Provider Internal Medicine
DX: M47.812 Spondylosis without myelopathy or radiculopathy, cervical region (principal)
CPT/HCPCS: 64490; 64491; J2003; J2795; Q9967

== ENCOUNTER 2025-03-18 12:14 | Outpatient (AMB) | payer OTHER, SELFPAY ==
[2025-03-18 12:19] VITALS: BP 110/84; PULSE 73; RESP 16; O2SAT 98
--- NOTE | 2025-03-18 12:19 | A.OFFVIS_ITS ---
Vital Signs 03/18/25 12:19 03/18/25 12:37 BP 110/84 120/84 Blood Pressure Location Lt brachial Lt brachial Position Sitting Sitting Respiration 16 16 Pulse 73 68 Pulse Source Pulse Oximeter Pulse Oximeter Pulse Oximetry (%) 98 98 Oxygen Delivery Method Room Air Room Air Intake Visit Reasons: Right Dx C3-C4-C5 MBB [employer] Required: No Allergies amoxicillin Adverse Reaction (Severe, Verified 03/18/25 12:20) Hives Medication List - Last Reconciled 03/18/25 by Radha Cates LPN ovgluerdx-izpawyly-qeszuaj ala 50-200-25 mg (Biktarvy) 1 tab PO DAILY rosuvastatin 10 mg PO BEDTIME HPI HPI Right Dx C3-C4-C5 MBB: Details: Patient presents for scheduled procedure. Denies any recent cough, cold, infection, fever or other significant changes in medical history since last office visit. [facility] Medical History (Updated 12/30/24 @ 11:50 by Bj Abernathy MD) Hyperlipidemia Insomnia BPH (benign prostatic hyperplasia) GERD (gastroesophageal reflux disease) Inguinal hernia HIV (human immunodeficiency virus infection) Physical Exam Vital Signs: Last Vital Signs Pulse 68 03/18/25 12:37 Resp 16 03/18/25 12:37 BP 120/84 03/18/25 12:37 Pulse Ox 98 03/18/25 12:37 Oxygen Delivery Method Room Air 03/18/25 12:37 Office Procedures Cervical/Thoracic Facet Inj Details: Diagnostic Cervical Medial Branch Block, right C3, C4, C5 medial branches After obtaining written consent, pre-procedure blood pressure and pulse were recorded and are in the nursing record for review. The patient was placed in a lateral position. The respective cervical area was prepped with chloraprep and draped in sterile fashion. The skin over the target medial branch nerves was anesthetized with 0.5% lidocaine. A 25 gauge 1.5 inch needle was inserted into the target medial branch nerve under fluoroscopic guidance. No paresthesias were elicited with needle placement and aspiration was negative for blood and CSF. Next, 0.2cc of omnipaque 180 was injected to verify positioning. Next 0.5 ml 0.5% ropivicaine was injected (0.5 cc total per level). The identical procedure was performed at the remaining levels. The skin was cleansed and a sterile bandage was applied. Following the procedure the patient's vital signs were stable. The patient tolerated the procedure well and no complications were encountered. Following the procedure the patient's vital signs were stable. The patient was discharged home in good condition with post-procedural instructions. Time Out: Immediately prior to the procedure, the following was verbally confirmed that there is a signed consent form and that the correct patient, planned procedure, site and side are consistent with documentation and that necessary equipment and/or blood products are available prior to the start of the case. Complications: none EBL: <5 cc 55259 - with Fluoroscopy 09813 - second level, with Fluoroscopy Procedure code (CPT) selection complete Assessment & Plan Assessment & Plan (1) Cervical facet joint syndrome: Code(s): M47.812 - Spondylosis without myelopathy or radiculopathy, cervical region Category: Medical Plan Patient is status post right C3, C4, C5 diagnostic medial branch blocks. Patient tolerated procedure well and was discharged home in stable condition with discharge instructions. All questions were answered. We will follow-up via telephone or in clinic to assess response to therapy. A follow-up appointment was made during today's visit. Orders: Orders AMB Facet Injection-Cervical/Thoracic Today Bj Abernathy MD M47.812 - Spondylosis without myelopathy or radiculopathy, cervical region FL guidance in treatment room Today Christina Olivier APRN, GROUND EQUIPMENT MECHANIC M47.812 - Spondylosis without myelopathy or radiculopathy, cervical region Coding Level of Care Code Procedure Only Diagnoses Cervical facet joint syndrome M47.812 CPT Codes Facet Injection Cervical/Thoracic - CPT: 42129 - with Fluoroscopy ([id number]) Facet Injection Cervical/Thoracic - CPT: 17261 - second level, with Fluoroscopy ([id number])
[2025-03-18 12:37] VITALS: BP 120/84; PULSE 68; RESP 16; O2SAT 98
== END 2025-03-18 12:57 | disposition home or self-care (01) ==
LOC: HO.PMCPRC 12:14
PROVIDERS: PCP Family Medicine; Visit Provider Internal Medicine
DX: M47.812 Spondylosis without myelopathy or radiculopathy, cervical region (principal)
CPT/HCPCS: 64490; 64491

== ENCOUNTER 2025-03-26 12:36 | Outpatient (AMB) | payer OTHER, SELFPAY ==
--- NOTE | 2025-03-26 12:37 | MHC.OFFVIS ---
Intake Visit Reasons: s/p right Dx C3-C4-C5 MBB Allergies amoxicillin Adverse Reaction (Severe, Verified 03/18/25 12:20) Hives HPI HPI s/p right Dx C3-C4-C5 MBB: Details: History of Present Illness The patient is a 59-year-old male presenting with the management of chronic pain. The patient reported a history of pain that was >90% relieved by a diagnostic injection for one night, during which he engaged in physical activities without discomfort. However, the relief was short-lived, and the pain returned the subsequent day. Pain Description - Pain relief was achieved temporarily following an injection, lasting until the next day. - Engaged in activities such as working out, mopping, and raking, which did not exacerbate pain on the night of injection. - Pain returned after one day, resuming as previously experienced. Pain Management - Affect: Not explicitly discussed in the conversation. - Analgesia: Prior injection provided temporary relief; further treatment needed. - Adverse Effects: Not explicitly discussed, but potential side effects of radiofrequency ablation were covered. - Activities of Daily Living: Relief from injection allowed the patient to perform usual activities without triggering pain temporarily. - Aberrant Drug Related Behaviors: Not explicitly discussed. [facility] Medical History (Updated 12/30/24 @ 11:50 by Bj Abernathy MD) Hyperlipidemia Insomnia BPH (benign prostatic hyperplasia) GERD (gastroesophageal reflux disease) Inguinal hernia HIV (human immunodeficiency virus infection) Telehealth Telehealth Telehealth Platform: [facility] Location of provider rendering services: practice address Location of patient: address on file Patient Identification confirmed using: Name, : Yes Telehealth method: video Patient verbally consented to treatment: Yes Patient verbally consented to billing insurance company: Yes Patient informed of any privacy concerns related to visit: Yes Assessment & Plan Assessment & Plan (1) Cervical facet joint syndrome: Code(s): M47.812 - Spondylosis without myelopathy or radiculopathy, cervical region Category: Medical Plan Plan - Plan for radiofrequency ablation right C3, C4, C5 medial branches to address chronic axial neck pain given >90% relief with 2 diagnostic injections - Patient has been informed of the specific risks including possible numbness and skin sensitivity post-procedure. - The duration of relief post-RFA, estimated between 6 to 12 months, and considerations for repeat procedures were outlined. Patient was informed and verbally consented to the use of an ambient scribe for clinic note documentation during this visit. Discussion Notes I discussed with the patient the plan to proceed with radiofrequency ablation as a potential long-term intervention for his chronic pain. I explained the risks associated with RFA, including a small chance that it might not be effective, and the potential for numbness or sensitivity in the skin in areas like the neck or head. These side effects typically improve over time. I also informed him of the potential duration of relief lasting from six to twelve months, and that while RFA can be repeated, it is advisable to do so no more than once every two years. The patient expressed understanding and agreement with the plan for RFA, and we will proceed to schedule the procedure. Patient Instructions - Await scheduling for radiofrequency ablation as planned. - Contact us if there are any questions or concerns regarding the upcoming procedure. - Report any new or worsening symptoms immediately. - Follow all pre-procedure instructions carefully once provided. Coding Level of Care Code Tele Est Pt Level 3 (17844) Diagnoses Cervical facet joint syndrome M47.812
--- OUTSIDE RECORDS SUMMARY | 2025-03-26 12:38 | XMS_ITS | Data Portability ---
Author Organization [facility], , [facility] Address [address] [place] [address] Assessment No assessment recorded. Plan of Treatment [...] Tala - Colonoscopy completed Mani Edgar MD [address] [place] [address], [phone], [facility] 11/28/2015 14:25:31 Imaging Results None recorded. Procedure [...] SNOMED-CT Code Diagnosis ICD10 Code Diagnosis Note [id number] Mani Edgar MD [facility], [address] [address] 11/28/2015 13:15:21 11/28/2015 14:41:45 Health Concerns Section Related Observation LastModified by Organization Detai ls LastModified Time None Recorded Concern Status LastModified by Organization Details LastModified Time None Recorded [place] Directives Directive None Recorded Payers Encounter Date Sequence Insurance Name Policy Number Policy Gupta Covered Member ID Gupta Member ID Guarantor Name 11/28/2015 1 [facility] (HMO) [id number] Sachin Mena [id number] Sachin Mena
--- OUTSIDE RECORDS SUMMARY | 2025-03-26 12:38 | XMS_ITS | Data Portability ---
Author Organization [facility] [employer], [employer] Address [address] [place] [address] [place] [address] Care Team Providers Care Direct Sales Representative Name Role Phone [place] BAUER Primary Care [...] headache at presentation are even less likely? t oxoplasmosis, PML, tubercular ecephalomeningitis. Signs of all would [...] to find brain MRI he had at [facility] for documentation Follow-up in 6 weeks [email or web address] Not available 01/07/2024 10:42:22 Plan of Treatment Reminders Order Date Submit Date Provider Last Modified By Organization Details Last Modified Time Details Appointments None recorded. Lab None recorded. Referral None recorded. Procedures None recorded. Surgeries None recorded. Imaging None recorded. Medication Orders propranolol ER 60 mg capsule,24 hr,extended release 2023 024 [email or web address] [id number], [address] [place], [place], [phone], 10:39:49 Patient TargetsNo targets recorded. Patient Instructions Encounter Date Encounter Id Patient Instructions Last Modified By Organization Details Last Modified Time 01/07/2024 [id number] Discussion acros s issues of diagnoses and management and same day associated chart review and management greater than 50% greater than 60 minutes [email or web address] Not available 01/07/2024 10:19:04 Reason for Referral None Reported. Results Created Date Observation Date Name Description Value Unit Range Abnormal Flag Note LastModifiedBy Organization Detail LastModifiedTime 01/07/2011/23/2023 MRI, brain , w/o contr ast No observ ation record ed. [email or web address] [address], [place], [address], 01/07/2024 12:14:56 Result Notes None recorded. Procedures Surgical History None recorded. Imaging Results Imaging Date Name Status LastModified by Organiz ation Details LastModified Time 11/23/2023 MRI, brain, w/o contrast completed [email or web address] [address], [place], [address], 01/07/2024 12:14:56 Procedure Notes None recorded. Medical [...] Updated DateTime 01/07/2024 182.88 cm 26.3 kg/m2 47149.92 g 12 /min [facility] 01/07/2024 09:30:44 Social History None recorded. Functional Status None recorded. Mental Status None recorded. Family History Relationship Description Onset Age of this Age Resolved Age Notes LastModified by Organization Details LastModified Time Unspecified Relation Heart disease [email or web address] Not available 09:30:59 Medical History Condition Response Headaches Y Past Encounters Encounter ID Performer Location Encounter Start Date Encounter Closed Date Diagnosis/Indication Diagnosis SNOMED-CT Code Diagnosis ICD10 Code Diagnosis Note [id number] Jorge Stockton MD [facility] [address] [place] [address] [place] [address] 01/07/2024 08:56:52 01/07/2024 10:55:41 Migraine without aura 39996017 G43.009 Health Concerns Section Related Observation LastModified by Organization Detai ls LastModified Time None Recorded Concern Status LastModified by Organization Details LastModified Time None Recorded Advance Directives Directive None Recorded Payers Encounter Date Sequence Insurance Name Policy Number Policy Gupta Covered Member ID Gupta Member ID Guarantor Name 01/07/2024 1 [facility] [id number] Sachin Mena [id number] Sachin Mena Notes Date Note Type Note [...] the skull base and to his right hindu with significant light and sound sensitivity and [...] before it becomes excruciating, and takes for xbrn-cdw-zihteow Advil or the equivalent of naproxen, the headache is somewhat dulled. Nevertheless, the headache is debilitating throughout its course. He has never tried a prescription medication for headache.If he were not having headaches, he feels quite healthy. He has had no confusion or fever. He has no weakness. Jorge Stockton MD [address] [place] [address] [place], [address], [facility] Neurology [facility] 01/07/2024 10:42:34
== END 2025-03-26 12:37 | disposition home or self-care (01) ==
LOC: HO.PMC 12:36
PROVIDERS: PCP Family Medicine; Visit Provider Internal Medicine
DX: M47.812 Spondylosis without myelopathy or radiculopathy, cervical region (principal)
CPT/HCPCS: 99213

== ENCOUNTER 2025-04-29 06:15 | Outpatient (REF) | payer OTHER, SELFPAY ==
--- NOTE | ~2025-04-29 | FL_ITS ---
EXAMINATION: FL GUIDANCE ONLY HISTORY: M47.812 - Spondylosis without myelopathy or radiculopathy, cervical region COMPARISON: None available. TECHNIQUE: Fluoroscopy time: 0.3 minutes. Cumulative Dose: 1.82 mGy. DAP: 0.0154 mGym2 Images: 2. FINDINGS: Fluoroscopic spot films of the neck demonstrate multiple needles in place on the right. FL/FL guidance in treatment room IMPRESSION: Fluoroscopy during procedure. Please see procedure report for additional information. Electronically signed by: Chas Siegel MD 04/29/2025 03:05 PM EDT
--- OUTSIDE RECORDS SUMMARY | 2025-04-29 06:17 | XMS_ITS | Data Portability ---
Author Organization [facility] [employer], [employer] Address [address] [place] [address] [place] [address] Care Team Providers Care Hydrometer Calibrator Name Role Phone [place] BAUER Primary Care [...] to find brain MRI he had at [facility] for documentation Follow-up in 6 weeks [email or web address] Not available 01/07/2024 10:42:22 Plan of Treatment Reminders Order Date Submit Date Provider Last Modified By Organization Details Last Modified Time Details Appointments None recorded. Lab None recorded. Referral None recorded. Procedures None recorded. Surgeries None recorded. Imaging None recorded. Medication Orders propranolol ER 60 mg capsule,24 hr,extended release 2023 024 [email or web address] [facility] #[id number], [address] [place], [place], [phone], 10:39:49 Patient TargetsNo targets recorded. Patient Instructions Encounter Date Encounter Id Patient Instructions Last Modified By Organization Details Last Modified Time 01/07/2024 [id number] Discussion acros s issues of diagnoses and management and same day associated chart review and management greater than 50% greater than 60 minutes [email or web address] Not available 01/07/2024 10:19:04 Reason for Referral None Reported. Results Created Date Observation Date Name Description Value Unit Range Abnormal Flag Note LastModifiedBy Organization Detail LastModifiedTime 01/07/2011/23/2023 MRI, brain , w/o contr ast No observ ation record ed. [email or web address] [address], [place], [address], 01/07/2024 12:14:56 Result Notes None recorded. Medical Equipment None Reported. [...] Updated DateTime 01/07/2024 182.88 cm 26.3 kg/m2 58898.92 g 12 /min [facility] Neurology [facility] 01/07/2024 09:30:44 Social History None recorded. Functional [...] SNOMED-CT Code Diagnosis ICD10 Code Diagnosis Note [id number] Jorge Stockton MD [facility] [address] [place] [address] [place] [address] 01/07/2024 08:56:52 01/07/2024 10:55:41 Migraine without aura [id number] G43.009 Health Concerns Section Related Observation LastModified by Organization Detai ls LastModified Time None Recorded Concern Status LastModified by Organization Details LastModified Time None Recorded Advance Directives Directive None Recorded Payers Insurance Date Sequence Insurance Name Policy Number Policy Gupta Covered Member ID Gupta Member ID Guarantor Name 01/14/2024 2 [employer] (PPO) Sachin Mena [id number] Sachin Mena 02/17/2024 1 [facility] INDEMNITY PLAN - [employer] [id number] Sachin Mena [id number] Sachin Mena Notes Date Note Type Note [...] before it becomes excruciating, and takes for zwag-sih-ekzpdjl Advil or the equivalent of naproxen, the headache is somewhat dulled. Nevertheless, the headache is debilitating throughout its course. He has never tried a prescription medication for headache.If he were not having headaches, he feels quite healthy. He has had no confusion or fever. He has no weakness. Jorge Stockton MD [address] [place] [address] [place], [address], [facility] Neurology [facility] 01/07/2024 10:42:34
== END 2025-04-29 06:16 | disposition home or self-care (01) ==
LOC: CF 06:15
PROVIDERS: Visit Provider Internal Medicine
DX: M47.812 Spondylosis without myelopathy or radiculopathy, cervical region (principal)
CPT/HCPCS: 64633; 64634; J2003; J2795

== ENCOUNTER 2025-04-29 09:56 | Outpatient (AMB) | payer OTHER, SELFPAY ==
[2025-04-29 10:04] VITALS: BP 119/77; PULSE 70; RESP 16; O2SAT 97
--- NOTE | 2025-04-29 10:04 | A.OFFVIS_ITS ---
Vital Signs 04/29/25 10:04 04/29/25 10:58 BP 119/77 135/75 Blood Pressure Location Lt brachial Lt brachial Position Sitting Sitting Respiration 16 16 Pulse 70 65 Pulse Source Pulse Oximeter Pulse Oximeter Pulse Oximetry (%) 97 96 Oxygen Delivery Method Room Air Room Air Intake Visit Reasons: Right C3-C4-C5 RFA/valium & oxy Allergies amoxicillin Adverse Reaction (Severe, Verified 03/18/25 12:20) Hives HPI HPI Right C3-C4-C5 RFA/valium & oxy: Details: Patient presents for scheduled procedure. Denies any recent cough, cold, infection, fever or other significant changes in medical history since last office visit. [facility] Medical History (Updated 12/30/24 @ 11:50 by Bj Abernathy MD) Hyperlipidemia Insomnia BPH (benign prostatic hyperplasia) GERD (gastroesophageal reflux disease) Inguinal hernia HIV (human immunodeficiency virus infection) Physical Exam Vital Signs: Last Vital Signs Pulse 70 04/29/25 10:04 Resp 16 04/29/25 10:04 BP 119/77 04/29/25 10:04 Pulse Ox 97 04/29/25 10:04 Oxygen Delivery Method Room Air 04/29/25 10:04 Office Procedures Details: Radiofrequency lesioning cervical medial branch nerves, RIGHT C3, C4 and C5 After obtaining written consent, pre-procedure blood pressure and heart rate were stable and recorded in the nursing record. The patient was placed in the lateral position. The?cervical?area was prepped with chloraprep and draped in sterile fashion. The skin over the target for each medial branch nerve was anesthetized with 0.75% lidocaine. An 18 gauge Tamocodent radiofrequency hybrid cannula-probe was advanced to each target site under fluoroscopic guidance. No paresthesias were elicited with needle placement and aspiration was negative for heme and CSF. Impedences were verified under 600 ohms. Motor testing (2 Hz) confirmed needle placement at each site within the appropriate voltage thresholds. Each site was injected with 1 ml 2% preservative-free lidocaine. Radiofrequency lesioning was performed for 90 seconds at 90 deg Celcius. The needle was removed, skin cleansed and a sterile bandage was applied. The patient tolerated the procedure well and no complications were encountered. Following the procedure the patient's vital signs were stable. The patient was discharged home in good condition with post-procedural instructions. Time Out: Immediately prior to the procedure, the following was verbally confirmed that there is a signed consent form and that the correct patient, planned procedure, site and side are consistent with documentation and that necessary equipment and/or blood products are available prior to the start of the case. Complications: none EBL: <5 cc 42948 - RFA Cervical Medial Branches 68431 - Cervical Medial Branches ADDNL Procedure code (CPT) selection complete Office Meds ropivacaine (PF) 5 mg/mL (0.5 %) injection solution Performing Provider: Christina Olivier APRN, CNP Performing Location: [facility] Administered by: Bj Abernathy MD on 04/29/25 11:01 Dose Route Admin Location Dispensed Lot Number Expiration Date [facility] Magnetic Prospecting Supervisor 5 mg subcut 5 mL Assessment & Plan Assessment & Plan (1) Cervical facet joint syndrome: Code(s): M47.812 - Spondylosis without myelopathy or radiculopathy, cervical region Category: Medical Plan Patient is status post right C3, C4, C5 medial branch radiofrequency ablation. Patient tolerated procedure well and was discharged home in stable condition with discharge instructions. All questions were answered. We will follow-up via telephone or in clinic to assess response to therapy. A follow-up appointment was made during today's visit. Orders: Orders AMB RFA Radiofrequency Ablation Pain Management Today Christina Olivier APRN, CNP M47.812 - Spondylosis without myelopathy or radiculopathy, cervical region FL guidance in treatment room Today Christina Olivier APRN, CNP M47.812 - Spondylosis without myelopathy or radiculopathy, cervical region Medications: New diazepam (Valium) please take 30minutes prior to arrival for procedure 5 mg PO ONCE PRN 1 tab 0RF sleep Christina Olivier APRN, CNP oxycodone take 30 minutes prior to arrival for procedure 10 mg PO ONCE PRN 1 tab 0RF pain Christina Olivier APRN, CNP ropivacaine (PF) 5 mg subcut ONCE 1 mL 0RF Bj Abernathy MD M47.812 - Spondylosis without myelopathy or radiculopathy, cervical region Coding Level of Care Code Procedure Only Diagnoses Cervical facet joint syndrome M47.812 CPT Codes Radiofrequency Ablation - Rad-Ablation 1: 49062 - RFA Cervical Medial Branches ([id number]) Radiofrequency Ablation - Rad-Ablation 2: 36897 - Cervical Medial Branches ADDNL ([id number])
[2025-04-29 10:58] VITALS: BP 135/75; PULSE 65; RESP 16; O2SAT 96
== END 2025-04-29 11:05 | disposition home or self-care (01) ==
LOC: HO.PMCPRC 09:56
PROVIDERS: PCP Family Medicine; Visit Provider Internal Medicine
DX: M47.812 Spondylosis without myelopathy or radiculopathy, cervical region (principal)
CPT/HCPCS: 64633; 64634

== ENCOUNTER 2025-05-14 09:56 | Outpatient (AMB) | payer OTHER, SELFPAY ==
--- NOTE | 2025-05-14 09:56 | A.OFFVIS_ITS ---
Intake Visit Reasons: FOLLOW UP AFTER PROCEDURE Allergies amoxicillin Adverse Reaction (Severe, Verified 03/18/25 12:20) Hives HPI HPI FOLLOW UP AFTER PROCEDURE: Details: History of Present Illness The patient is a 59-year-old male presenting with cervicogenic headache. The patient reports an increase in headache frequency following a recent procedure intended to alleviate symptoms. Initially, the patient experienced relief for the first six days post-procedure, but subsequently, the headaches returned, particularly after engaging in physical activities such as clipping higher branches and walking uphill. The headaches predominantly occur at night, with two significant episodes in the past two weeks. The patient describes the headaches as severe enough to interfere with daily activities, including missing a significant event such as a halfway green party. The patient has attempted various interventions, including tbjp-lsi-zwxtbkx medications like Advil and Tylenol, as well as hot and cold showers, with limited success. The patient has also used oxycodone occasionally, obtained from others, to manage the pain. The patient was informed that the procedure might take up to two weeks to show full efficacy, as the nerves take time to off. The patient expressed confusion about the timeline, expecting immediate results post-procedure. Pain Description - Onset and Timing: Headaches occur predominantly at night, with two significant episodes in the past two weeks. - Quality and Character: Severe headaches that interfere with daily activities. - Exacerbating Factors: Physical activities such as clipping higher branches and walking uphill. - Relieving Factors: Qtth-ftp-lpmibgg medications and hot/cold showers, though with limited success. Pain Management - Affect: Headaches significantly impact the patient's ability to participate in social events. - Analgesia: Current use of Advil, Tylenol, and occasional oxycodone for pain relief. - Activities of Daily Living: Headaches interfere with daily activities and social engagements. - Aberrant Drug Related Behaviors: Occasional use of oxycodone obtained from others. [facility] Medical History (Updated 12/30/24 @ 11:50 by Bj Abernathy MD) Hyperlipidemia Insomnia BPH (benign prostatic hyperplasia) GERD (gastroesophageal reflux disease) Inguinal hernia HIV (human immunodeficiency virus infection) Telehealth Telehealth [facility]health [facility] Location of provider rendering services: practice address Location of patient: address on file Patient Identification confirmed using: Name, : Yes Telehealth method: video Patient verbally consented to treatment: Yes Patient verbally consented to billing insurance company: Yes Patient informed of any privacy concerns related to visit: Yes Assessment & Plan Assessment & Plan (1) Cervical facet joint syndrome: Code(s): M47.812 - Spondylosis without myelopathy or radiculopathy, cervical region Category: Medical Plan Plan - Monitor headache frequency over the next month to assess the effectiveness of the cervical medial branch RFA procedure. Had good 2 weeks initially but then worsened after increased snzn-vpy-bxcx activity. - Consider requesting a low dose prescription for 10 oxycodone tablets per month from the primary care provider for as-needed use. - Follow-up appointment scheduled for to evaluate progress and adjust management as necessary. Patient was informed and verbally consented to the use of an ambient scribe for clinic note documentation during this visit. Discussion Notes I discussed with the patient that the procedure may take up to two weeks to show full efficacy. We talked about monitoring the frequency of headaches over the next month to determine the effectiveness of the treatment. I advised the patient to consider requesting a prescription for 10 oxycodone tablets per month from their primary care provider for as-needed use. A follow-up appointment was scheduled for to evaluate progress and adjust management as necessary. Patient Instructions - Monitor the frequency of headaches over the next month. - Consider asking your primary care provider for a prescription of 10 oxycodone tablets per month for as-needed use. - Attend the follow-up appointment scheduled for . Coding Level of Care Code Tele Est Pt Level 3 (82707) Diagnoses Cervical facet joint syndrome M47.812
--- OUTSIDE RECORDS SUMMARY | 2025-05-14 10:27 | XMS_ITS | Data Portability ---
Author Organization [facility] [employer], [employer] Address [address] [place] [address] [place] [address] Care Team Providers Care Welt Sewer Name Role Phone [place] BAUER Primary Care Provider [phone] [place] BAUER Referring Provider [phone] Assessment Encounter Date Assessment Date Assessment LastModified [...] include headache at presentation are even less likely toxoplasmosis, PML, tubercular ecephalomeningitis. Signs of all [...] find brain MRI he had at [facility] for documentation Follow-up in 6 weeks [email or web address] Not available 01/07/2024 10:42:22 Plan of Treatment Reminders Order Date Submit Date Provider Last Modified By Organization Details Last Modified Time Details Appointments None recorded. Lab None recorded. Referral None recorded. Procedures None recorded. Surgeries None recorded. Imaging None recorded. Medication Orders propranolol ER 60 mg capsule,24 hr,extended release 2023 024 [email or web address] [facility][id number], [address] [place], [place], [phone], 10:39:49 Patient TargetsNo targets recorded. Patient Instructions Encounter Date Encounter Id Patient Instructions Last Modified By Organization Details Last Modified Time 01/07/2024 [id number] Discussion acros s issues of diagnoses and [...] No observ ation record ed. [email or web address] [address], [place], [address], 01/07/2024 12:14:56 Result Notes None recorded. Medical [...] Updated DateTime 01/07/2024 182.88 cm 26.3 kg/m2 99468.92 g 12 /min [facility] Neurology [facility] 01/07/2024 09:30:44 Social History None recorded. Functional [...] SNOMED-CT Code Diagnosis ICD10 Code Diagnosis Note [id number] Jorge Stockton MD [facility] [address] [place] [address] [place] [address] 01/07/2024 08:56:52 01/07/2024 10:55:41 Migraine without aura [id number] G43.009 Health Concerns Section Related Observation LastModified by Organization Detai ls LastModified Time None Recorded Concern Status LastModified by Organization Details LastModified Time None Recorded Advance Directives Directive None Recorded Payers Insurance Date Sequence Insurance Name Policy Number Policy Gupta Covered Member ID Gupta Member ID Guarantor Name 01/14/2024 2 [employer] (PPO) Sachin Mena [id number] Sachin Mena 02/17/2024 1 [facility] INDEMNITY PLAN - [employer] [id number] Sachin Mena [id number] Sachin Mena Notes Date Note Type Note [...] the skull base and to his right druze with significant light and sound sensitivity and [...] before it becomes excruciating, and takes for lzvs-qok-bsqpowt Advil or the equivalent of naproxen, the headache is somewhat dulled. Nevertheless, the headache is debilitating throughout its course. He has never tried a prescription medication for headache.If he were not having headaches, he feels quite healthy. He has had no confusion or fever. He has no weakness. Jorge Stockton MD [address] [place] [address] [place], [address], [facility] Neurology [facility] 01/07/2024 10:42:34
== END 2025-05-14 09:57 | disposition home or self-care (01) ==
LOC: HO.PMC 09:56
PROVIDERS: PCP Family Medicine; Visit Provider Internal Medicine
DX: M47.812 Spondylosis without myelopathy or radiculopathy, cervical region (principal)
CPT/HCPCS: 99213

== ENCOUNTER 2025-06-30 10:34 | Outpatient (AMB) | payer OTHER, SELFPAY ==
--- NOTE | 2025-06-30 10:35 | A.OFFVIS_ITS ---
Intake Visit Reasons: s/p right C3-C4-C5 RFA Allergies amoxicillin Adverse Reaction (Severe, Verified 03/18/25 12:20) Hives HPI HPI s/p right C3-C4-C5 RFA: Details: History of Present Illness The patient is a 60-year-old male presenting with cervical dystonia and facet- mediated pain. The patient reports that initial treatment provided relief for the first two weeks, but symptoms returned to baseline thereafter. There has been no decrease in the frequency of symptoms. Previous attempts to obtain insurance approval for nerve stimulation were unsuccessful, and it is anticipated that coverage will remain difficult to secure. The patient does not exhibit typical symptoms of cervical dystonia, which complicates insurance coverage for Botox treatment. The patient has had successful diagnostic facet blocks in the past, but ra diofrequency ablation did not provide relief. Therapeutic facet blocks with cortisone are planned to address the facet-mediated pain. Pain Description - Initial treatment provided relief for two weeks before symptoms returned to baseline. - No decrease in frequency of symptoms. Pain Management - Affect: No specific impact on mood or psychological wellbeing discussed. - Analgesia: Cortisone injections planned for pain management. - Adverse Effects: No adverse effects from current pain management discussed. - Activities of Daily Living: No specific impact on daily activities discussed. - Aberrant Drug Related Behaviors: No aberrant behaviors discussed. [facility] Medical History (Updated 12/30/24 @ 11:50 by Bj Abernathy MD) Hyperlipidemia Insomnia BPH (benign prostatic hyperplasia) GERD (gastroesophageal reflux disease) Inguinal hernia HIV (human immunodeficiency virus infection) Telehealth Telehealth Telehealth Platform: [facility] Location of provider rendering services: practice address Location of patient: address on file Patient Identification confirmed using: Name, : Yes Telehealth method: video Patient verbally consented to treatment: Yes Patient verbally consented to billing insurance company: Yes Patient informed of any privacy concerns related to visit: Yes Minutes spent on Phone/Video with Pt.: 9 Assessment & Plan Assessment & Plan (1) Cervical facet joint syndrome: Code(s): M47.812 - Spondylosis without myelopathy or radiculopathy, cervical region Category: Medical Plan Plan - Plan for cervical facet steroid injections to the C3/4, C4/5 facets on the right side. - Consideration of platelet-rich plasma injections if cortisone is ineffective. - Botox treatment for cervical dystonia discussed, but insurance coverage is unlikely. - Nerve stimulation was previously attempted but not approved by insurance. Patient was informed and verbally consented to the use of an ambient scribe for clinic note documentation during this visit. Discussion Notes I discussed with the patient the management options for his cervical dystonia and facet-mediated pain. We reviewed the potential for cortisone injections and the possibility of platelet-rich plasma injections if needed. I explained that Botox treatment is unlikely to be covered by insurance due to the lack of typical symptoms. We also discussed that nerve stimulation was not approved by insurance previously. Patient Instructions - Await a call from [place] for approval and scheduling of cortisone injections. - Consider platelet-rich plasma injections if cortisone does not provide relief. - Understand that Botox treatment may not be covered by insurance. Coding Level of Care Code Tele Est Pt Level 3 (19951) Diagnoses Cervical facet joint syndrome M47.812
== END 2025-06-30 10:35 | disposition home or self-care (01) ==
LOC: HO.PMC 10:34
PROVIDERS: PCP Family Medicine; Visit Provider Internal Medicine
DX: M47.812 Spondylosis without myelopathy or radiculopathy, cervical region (principal)
CPT/HCPCS: 99213

== ENCOUNTER 2025-08-26 06:18 | Outpatient (REF) | payer OTHER, SELFPAY ==
--- NOTE | ~2025-08-26 | FL_ITS ---
EXAMINATION: FL GUIDANCE ONLY HISTORY: M47.812 - Spondylosis without myelopathy or radiculopathy, cervical region COMPARISON: None available. TECHNIQUE: Fluoroscopy time: 0.1 minute. Cumulative Dose: 0.875 mGy. DAP: 0.0101 mGycm2 Images: 2. FINDINGS: Fluoroscopic spot films of the cervical spine demonstrate needles and contrast material in place at 3 levels on the right. FL/FL guidance in treatment room IMPRESSION: Fluoroscopy during procedure. Please see procedure report for additional information. Electronically signed by: Chas Siegel MD 08/26/2025 02:59 PM EDT
== END 2025-08-26 06:19 | disposition home or self-care (01) ==
LOC: CF 06:18
PROVIDERS: Visit Provider Internal Medicine
DX: M47.812 Spondylosis without myelopathy or radiculopathy, cervical region (principal)
CPT/HCPCS: 64490; 64491; 64492; J2795; J3301; Q9967

== ENCOUNTER 2025-08-26 11:17 | Outpatient (AMB) | payer OTHER, SELFPAY ==
--- NOTE | 2025-08-26 11:25 | MHC.OFFVIS ---
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 Denies any recent cough, cold, infection, fever or other significant changes in medical history since last office visit. [facility] Medical History (Updated 12/30/24 @ 11:50 by Bj Abernathy MD) Hyperlipidemia Insomnia BPH (benign prostatic hyperplasia) GERD (gastroesophageal reflux disease) Inguinal hernia HIV (human immunodeficiency virus infection) Physical Exam Vital Signs: Last Vital Signs Pulse 73 08/26/25 11:26 BP 139/84 08/26/25 11:26 Pulse Ox 98 08/26/25 11:26 Oxygen Delivery Method Room Air 08/26/25 11:26 BMI result Body Mass Index 25.8 Office Procedures Cervical/Thoracic Facet Inj Details: Cervical Intra-articular Facet Injections, Right, C3-4, C4-5, C5-6 After obtaining written consent, pre-procedure blood pressure and pulse were recorded and are in the nursing record for review. The patient was placed in a lateral position. The respective cervical area was prepped with chloraprep and draped in sterile fashion. The target facet joints were visualized using lateral fluoroscopy to reveal the joint line. A 25 gauge 1.5 inch needle was advanced towards the target facet joint under fluoroscopic guidance until bony contact. The needle was then maneuvered and rotated until it slid into the joint slightly. No paresthesias were elicited with needle placement and aspiration was negative for blood and CSF. Next, 13mg of triamcinolone mixed with 0.5% ropivicaine was injected (0.5cc total per level). The identical procedure was performed at the remaining levels. The skin was cleansed and a sterile bandage was applied. Following the procedure the patient's vital signs were stable. The patient tolerated the procedure well and no complications were encountered. Following the procedure the patient's vital signs were stable. The patient was discharged home in good condition with post-procedural instructions. Time Out: Immediately prior to the procedure, the following was verbally confirmed that there is a signed consent form and that the correct patient, planned procedure, site and side are consistent with documentation and that necessary equipment and/or blood products are available prior to the start of the case. Complications: none EBL: <5 cc 09265 - with Fluoroscopy 81092 - second level, with Fluoroscopy 96229 - third level, with Fluoroscopy Procedure code (CPT) selection complete Assessment & Plan Assessment & Plan (1) Cervical facet joint syndrome: Code(s): M47.812 - Spondylosis without myelopathy or radiculopathy, cervical region Category: Medical Plan Patient is status post right cervical facet joint injections. Patient tolerated procedure well and was discharged home in stable condition with discharge instructions. All questions were answered. We will follow-up via telephone or in clinic to assess response to therapy. A follow-up appointment was made during today's visit. Orders: Orders AMB Facet Injection-Cervical/Thoracic 08/26/25 Bj Abernathy MD M47.812 - Spondylosis without myelopathy or radiculopathy, cervical region FL guidance in treatment room 08/26/25 Christina Olivier APRN, VESSEL LINER M47.812 - Spondylosis without myelopathy or radiculopathy, cervical region Coding Level of Care Code Procedure Only Diagnoses Cervical facet joint syndrome M47.812 CPT Codes Facet Injection Cervical/Thoracic - CPT: 77546 - with Fluoroscopy ([id number]) Facet Injection Cervical/Thoracic - CPT: 33013 - second level, with Fluoroscopy ([id number]) Facet Injection Cervical/Thoracic - CPT: 60636 - third level, with Fluoroscopy ([id number])
[2025-08-26 11:26] VITALS: BP 139/84; PULSE 73; O2SAT 98; BMI 25.8
== END 2025-08-26 12:09 | disposition home or self-care (01) ==
LOC: HO.PMCPRC 11:17
PROVIDERS: PCP Family Medicine; Visit Provider Internal Medicine
DX: M47.812 Spondylosis without myelopathy or radiculopathy, cervical region (principal)
CPT/HCPCS: 64490; 64491; 64492